=== PATIENT | male | born 1940 | race Caucasian/White ===

== ENCOUNTER 2021-05-22 16:40 | Emergency (ER) | payer MEDICARE ==
[~2021-05-22] VITALS: Ht 180.3 cm; Wt 108.9 kg
--- NOTE | 2021-05-22 16:52 | NUR ---
PLACED ON A COOL AEROSOL VIA INLINE SUCTION CATHETER (T-BAR) FIO2 30%/6 LPM SATURATION 97% HR 65 DEEP TRACHEAL SUCTION FOR LARGE THICK YELLOW SECRETIONS AIRWAY PATENT CHANGED DISPOSABLE INNER CANNULA LARRY/SURVEILLANCE DUAL RATE OFFICER NOTIFIED
[2021-05-22 16:57] VITALS: BP 105/70
--- NOTE | 2021-05-22 17:01 | NUR ---
PT FROM HOME TRACH TO VENT, PER PT HAD INCREASED SECRETIONS AND WANTED PT TO BE SENT TO HOSPITAL. PT DENIES SOB.
--- NOTE | 2021-05-22 18:30 | NUR ---
DYLLAN AMADOR SAMPLE COLLECTED AND HANDED TO [employer] UNDERWRITER
[2021-05-22 18:45] LABS: BASOPHILS # (AUTO) 0.1 K/uL (0.00-0.22); BASOPHILS % (AUTO) 0.7 % (0.0-2.0); EOSINOPHILS % (AUTO) 12.6 % (0.0-4.0); HEMATOCRIT 26.8 % (36-52); HEMOGLOBIN 9.1 g/dL (12.0-18.0); LYMPHOCYTES # (AUTO) 1.7 K/uL (2.0-11.5); LYMPHOCYTES % (AUTO) 21.9 % (20.5-51.1); MEAN CORPUSCULAR HEMOGLOBIN 32 pg (27-31); MEAN CORPUSCULAR HGB CONC 34 g/dL (33-37); MEAN CORPUSCULAR VOLUME 94.3 fL (80-94); MONOCYTES # (AUTO) 1.2 K/uL (0.8-1.0); MONOCYTES % (AUTO) 15.7 % (1.7-9.3); NEUTROPHILS # (AUTO) 3.8 K/uL (1.8-7.7); NEUTROPHILS % (AUTO) 49.1 % (42.2-75.2); PLATELET COUNT (AUTO) 242 K/uL (140-450); RED BLOOD CELL COUNT(AUTO) 2.85 MIL/uL (4.20-6.10); WHITE BLOOD COUNT (AUTO) 7.6 K/uL (4.8-10.8)
--- NOTE | 2021-05-22 19:22 | NUR ---
REPORT RECEIVED FROM EMMANUEL WINKLER FOR CONTINUITY OF PT CARE AT THIS TIME.
--- NOTE | 2021-05-22 19:30 | NUR ---
PT LAYING SUPINE IN BED W HOB PARTIALLY ELEVATED. PT GCS 15, PT HAS RHONCHI AND SECRETIONS, PT HAS TRACH ON 6L O2 TO T PIECE , BREATHING EVEN AND UNLABORED. PT DENIES ANY PAIN, SOB, OR NAUSEA. PT HAS A GTUBE, INTACT/CLEAN. PT VSS. PT UNABLE TO PROVIDE URINE AT THIS TIME, REFUSES CATH, ERMD AWARE PER ERMD OK IF PT REFUSES. NAD NOTED, WILL CONTINUE TO MONITOR.
[2021-05-22 19:51] LABS: ALBUMIN 2.2 g/dL (3.4-5.0); ANION GAP 13.2 (8-16); ASPARTATE AMINOTRANSFERASE 23 U/L (15-37); CARBON DIOXIDE 30.3 mmol/L (21-32); CHLORIDE 95 mmol/L (98-107); GLUCOSE 119 mg/dL (74-106); POTASSIUM 3.5 mmol/L (3.5-5.1); SODIUM SERUM 135 mmol/L (136-145); TOTAL BILIRUBIN 0.2 mg/dL (0.0-1.0)
[2021-05-22 19:58] LABS: UREA NITROGEN, BLOOD 62 mg/dL (7-18)
[2021-05-22] MEDS ORDERED: NACL 0.9% 1,000 ML IV ONE (21:20)
[2021-05-22] MEDS ORDERED: PIPERACILLIN/TAZOBACTAM 3.375 GM in DEXTROSE 5% 50 ML IV ONE (21:20)
[2021-05-22] MEDS ORDERED: PIPERACILLIN/TAZOBACTAM 3.375 GM VIAL IV ONE (21:49)
--- NOTE | 2021-05-22 21:59 | NUR ---
PT REFUSING MEDICATIONS UNTIL HE SPEAKS W .
--- NOTE | 2021-05-22 22:00 | NUR ---
PT GAVIN CONTACTED, SPOKE W PT. PT OK WITH MEDICATION TREATMENT.
--- NOTE | 2021-05-22 22:39 | NUR ---
PT PROVIDED W PERINEAL CARE, PLACED IN GOWN, PROVIDED BLANKET. REPOSITIONED FOR COMFORT.
[2021-05-23] MEDS ORDERED: DEXTROSE 5% IV ONE (00:20)
[2021-05-23] MEDS ORDERED: VANCOMYCIN IV ONE (00:20)
[2021-05-23] MEDS ORDERED: NACL 0.9% 1,000 ML IV ONE (00:20)
[2021-05-23] MEDS ORDERED: VANCOMYCIN 1,000 MG VIAL ONE (00:59)
--- NOTE | 2021-05-23 01:27 | NUR ---
[facility] AT BEDSIDE
--- NOTE | 2021-05-23 01:32 | NUR ---
Pt report given to EMMANUEL LARA COVERING FOR EMMANUEL RANGEL FROM [facility]. Transfer of care at this time.
--- NOTE | 2021-05-23 01:48 | NUR ---
Patient to be transferred to [facility]. Is being transferred due to INSURANCE REQUEST. Receiving facility has accepting physician and available space. ER physician has signed transfer form. Patient or responsible constitution party has agreed to transfer and signed form. Patient belongings inventoried and will be sent with patient. Copy of nursing notes, lab reports, EKG, Physicians Orders and X-rays to be sent with patient. Report called to EMMANUEL KELLY at receiving facility. [facility] service has been called for transfer. [facility] TAKING PT AT THIS TIME.
[2021-05-23 01:52] VITALS: BP 135/71
--- NOTE | 2021-05-23 01:52 | NUR ---
PT TAKEN BY [facility] TO [facility] ROOM [id number]
== END 2021-05-23 01:52 | disposition short-term general hospital (02) ==
LOC: MED 16:40
DX: J18.9 Pneumonia, unspecified organism (principal); Z20.822 Contact with and (suspected) exposure to COVID-19; E11.9 Type 2 diabetes mellitus without complications; I10 Essential (primary) hypertension; J44.9 Chronic obstructive pulmonary disease, unspecified; Z98.890 Other specified postprocedural states
CPT/HCPCS: 36415; 71045; 80053; 83605; 83880; 84484; 85025; 87040; 93005; 96361; 96365; 96367; 99285; J2543; J3370; J7030; Q0092

== ENCOUNTER 2022-03-23 11:43 | Emergency (ER) | payer MEDICARE ==
[~2022-03-23] VITALS: Ht 170.2 cm; Wt 99.8 kg
--- NOTE | 2022-03-23 11:43 | NUR ---
[facility] TO ER BED 2
--- NOTE | 2022-03-23 11:50 | NUR ---
(APPROX) PT RECEIVED, CARE ASSUMED. PT BIB EMS FROM HOME FOR EVALAUTION OF SOB, ALOC. 02 SAT @ HOME RANGES : 70'S-LOW 80'S %. PT PLACED ON BED 2, CONNECTED TO TELE MONITOR, RT @ BED SIDE, CONNCTING VENT TO TRACH, INSERTED 22G IV TO LEFT ABDO. EMS UNABLE TO PLACE IV. INSERTED 20G IV TO LEFT WRIST, STUNT WOMAN INSERTED 22G IV TO RIGHT ARM. AWAITING TO BE SEEN BY
[2022-03-23 11:52] VITALS: BP 95/61
[2022-03-23 12:00] VITALS: BP 98/61
[2022-03-23 13:02] LABS: HEMATOCRIT 29.4 % (36-52); HEMOGLOBIN 9.1 g/dL (12.0-18.0); MEAN CORPUSCULAR HEMOGLOBIN 31 pg (27-31); MEAN CORPUSCULAR HGB CONC 31 g/dL (33-37); MEAN CORPUSCULAR VOLUME 99.9 fL (80-94); PLATELET COUNT (AUTO) 297 K/uL (140-450); RED BLOOD CELL COUNT(AUTO) 2.94 MIL/uL (4.20-6.10); WHITE BLOOD COUNT (AUTO) 13.5 K/uL (4.8-10.8)
[2022-03-23 13:07] LABS: PROTHROMBIN TIME 10.4 secs (10.8-13.4)
[2022-03-23 13:33] LABS: BASOPHILS % (MANUAL) 0 % (0-2); BLASTS, MANUAL % 0 % (0-0); EOSINOPHILS % (MANUAL) 3 % (0-4); LYMPHOCYTES % (MANUAL) 5 % (20-46); METAMYELOCYTES % 0 % (0-0); MONOCYTES % (MANUAL) 11 % (5-12); MYELOCYTES % 0 % (0-0); OTHER CELLS,MANUAL % 0 (0-0); PROMYELOCYTES % 0 % (0-0)
[2022-03-23 13:35] LABS: BUFFY COAT SMEAR PREP N
[2022-03-23 14:09] LABS: APPEARANCE,URINE SL CLOUDY (CLEAR); BILIRUBIN,URINE NEGATIVE (NEGATIVE); BLOOD, URINE NEGATIVE (NEGATIVE); COLOR,URINE YELLOW (YELLOW); LEUKOCYTE ESTERASE ,URINE 1+ (NEGATIVE); NITRITE, URINE NEGATIVE (NEGATIVE); PH,URINE 5.5 (5.0-9.0); UGLUCOSE NEGATIVE (NEGATIVE)
[2022-03-23] MEDS ORDERED: PIPERACILLIN/TAZOBACTAM 3.375 GM in DEXTROSE 5% 50 ML IV ONE (14:30)
[2022-03-23] MEDS ORDERED: NACL 0.9% 1,000 ML IV ONE (14:30)
[2022-03-23 14:39] LABS: OTHER CASTS, URINE None Seen /LPF (None Seen); RBC,URINE 0-5 /HPF (0-5)
[2022-03-23 14:45] LABS: ALBUMIN 2.5 g/dL (3.4-5.0); ANION GAP 6.4 (8-16); ASPARTATE AMINOTRANSFERASE 26 U/L (15-37); CHLORIDE 95 mmol/L (98-107); CREATININE 2.9 mg/dL (0.6-1.3); GLUCOSE 306 mg/dL (74-106); POTASSIUM 4.6 mmol/L (3.5-5.1); SODIUM SERUM 142 mmol/L (136-145); TOTAL BILIRUBIN 0.2 mg/dL (0.0-1.0)
[2022-03-23 14:46] LABS: CARBON DIOXIDE 45.2 mmol/L (21-32); UREA NITROGEN, BLOOD 98 mg/dL (7-18)
[2022-03-23 16:19] LABS: RSV POSITIVE (NEGATIVE)
[2022-03-23] MEDS ORDERED: PIPERACILLIN/TAZOBACTAM 3.375 GM VIAL IV ONE (17:07)
--- NOTE | 2022-03-23 19:30 | NUR ---
RECVD PATIENT ON TRACHE TO VENT WITH SETTING FI02 60,VT 500,RATE 16,PEEP 5, NON VERBAL
[2022-03-23 19:45] VITALS: BP 114/63
--- NOTE | 2022-03-23 20:00 | NUR ---
Patient to be transferred to [facility]. Is being transferred due to INSURANCE PURPOSES. Receiving facility has accepting physician and available space. ER physician has signed transfer form. Patient or responsible green party has agreed to transfer and signed form. Patient belongings inventoried and will be sent with patient. Copy of nursing notes, lab reports, EKG, Physicians Orders and X-rays to be sent with patient. Report called to FAITH BENITEZ at receiving facility. [facility] ambulance service has been called for transfer. ETA is [id number]
--- NOTE | 2022-03-23 21:30 | NUR ---
REPORT GIVEN TO FAITH BENITEZ
[2022-03-23 23:00] VITALS: BP 109/60
--- NOTE | 2022-03-23 23:13 | NUR ---
Pt report given to PAPA BENITEZ [facility]. Transfer of care at this time.
--- NOTE | 2022-03-25 18:30 | NUR ---
LATE ENTRY. RECEIVED CALL FROM PTS -GAVIN ([phone]), YESTERDAY 03/24/22 REGARDING A MISSING BED SHEET THAT PT CAME IN WITH. I SEARCHED THE ROOM AND CONTACTED SABINO WITH [facility]S TO CHECK FOR THE SHEET. SHEET NOT FOUND. I CALLED GAVIN TO INFORM HER THAT IT WASNT FOUND. EXPLAINED TO GAVNI THAT IT WAS RECORDED ON PTS BELONGINGS LIST AND FROM WHAT I WAS TOLD PER [facility] WHEN PT WAS TRANSFERRED, BELONGINGS WENT WITH THE PT.
--- NOTE | 2022-03-27 09:53 | NUR ---
LATE ENTRY. RECEIVED POSITIVE URINE CULTURE RESULT. PT WAS TRANSFERRED TO [facility]. CALLED AND SPOKE WITH JOSTIN, STATED HE IS STILL THERE. RESULTS FAXED TO [phone], ATTN LEÓN, PTS NURSE. RECEIVED CONFIRMATION FAX Addendum: 03/27/22 at 0959 by [email or web address] FORM SIGNED BY DR KHOURY.
== END 2022-03-23 23:13 | disposition short-term general hospital (02) ==
LOC: MED 11:43
DX: N39.0 Urinary tract infection, site not specified (principal); Z20.822 Contact with and (suspected) exposure to COVID-19; R09.02 Hypoxemia; D53.9 Nutritional anemia, unspecified; N18.9 Chronic kidney disease, unspecified
CPT/HCPCS: 36415; 36600; 71045; 80053; 81001; 82803; 83605; 83880; 84484; 85025; 85610; 85730; 87040; 87086; 87420; 87426; 87804; 93005; 94002; 94760; 96361; 96365; 96366; 99285; J2543; J7030; Q0092